=== PATIENT | male | born 1955 | race Caucasian/White ===

== ENCOUNTER 2023-08-04 09:03 | Emergency (ER) | payer OTHER ==
[2023-08-04] MEDS ORDERED: ONDANSETRON 4 MG/2 ML VIAL ONE (09:40)
[2023-08-04] MEDS ORDERED: NA CHLORIDE 0.9% 500 ML ONE (09:41)
[2023-08-04] MEDS ORDERED: PANTOPRAZOLE 40 MG INJ ONE (09:41)
[2023-08-04 09:43] LABS: Absolute Basophils 0.1 K/uL (0-0.5); Absolute Eosinophils 0.1 K/uL (0-0.5); Absolute Lymphocytes (CBC) 3.1 K/uL (0.7-4.9); Absolute Monocytes 0.8 K/uL (0.1-1.3); Absolute Neutrophil 9.2 K/uL (1.8-8.0); Basophils % 0.4 % (0-1.3); Eosinophils % 0.5 % (0-4.4); Hematocrit 22.4 % (39.6-49.0); Hemoglobin 7.7 g/dL (13.6-17.9); Lymphocytes % 23.7 % (15.3-44.8); MCHC 34.1 g/dL (32.0-36.0); MCV 96.7 fL (80-100); MPV 8.4 fL (7.6-11.3); Monocytes % 5.8 % (3.3-12.3); Neutrophils % 69.6 % (41.7-73.7); Nucleated Red Blood Cells % 0.2 % (0-0); Platelets 285 thou/uL (152-406); RBC Red Blood Cell Count 2.32 M/uL (4.33-5.43); Red Cell Distribution Width 13.2 % (12.1-15.2)
--- NOTE | 2023-08-04 09:44 | EDPHYS ---
Physician Documentation [facility] Name: Case Hoyt Age: 67 yrs Sex: Male : 1955 Arrival Date: 08/04/2023 Time: 09:03 Bed 15 Private MD: ED Physician Pro Baez HPI: 08/03 09:31 This 67 yrs old Male presents to ER via EMS with complaints of Bloody Stools. jackie 09:31 The patient presents with abdominal pain in the upper abdomen. Onset: The jackie symptoms/episode began/occurred 2 day(s) ago. The patient presents to the emergency department with rectal bleeding, melena. Onset: The symptoms/episode began/occurred 2 day(s) ago. Abdominal pain: none is appreciated. Modifying factors: The symptoms are alleviated by nothing, the symptoms are aggravated by nothing. The patient presents with feeling faint, lightheadedness. Modifying factors: The symptoms are alleviated by lying down, the symptoms are aggravated by standing up, changing position. 09:34 Associated signs and symptoms: The patient has no apparent associated signs or jackie symptoms. Severity of symptoms: At their worst the symptoms were moderate in the emergency department the symptoms are unchanged. The symptoms do not radiate. Associated signs and symptoms: Pertinent positives: anorexia, blood in stools. Patient's baseline: Neuro: alert and fully oriented. The patient has not experienced similar symptoms in the past. Historical: - Allergies: 09:15 PENICILLINS; aa5 - Home Meds: 09:15 escitalopram oxalate 20 mg oral tablet once [Active]; Plavix 75 mg Oral tablet once aa5 [Active]; atorvastatin 40 mg oral tablet once [Active]; trazodone 100 mg Oral tablet every day at bedtime for insomnia associated with depression [Active]; pantoprazole 40 mg oral tablet, delayed release (enteric coated) once [Active]; losartan 50 mg oral tablet once [Active]; amlodipine 10 mg tablet once [Active]; metformin 500 mg Oral tablet 2 tabs after the evening meal [Active]; - PMHx: 09:15 Diabetes mellitus; Hypertensive disorder; Hypercholesterolemia; aa5 09:18 Insomnia; hard of hearing; aa5 09:15 PAD; aa5 - Immunization history:: Adult Immunizations unknown. - Infectious Disease History:: Denies. - Social history:: Smoking status: Patient reports the use of cigarette tobacco products. - Family history:: not pertinent. ROS: 09:34 Constitutional: Negative for fever, chills, and weight loss, Eyes: Negative for injury, jackie pain, redness, and discharge, ENT: Negative for injury, pain, and discharge, Neck: Negative for injury, pain, and swelling, Cardiovascular: Negative for chest pain, palpitations, and edema, Respiratory: Negative for shortness of breath, cough, wheezing, and pleuritic chest pain, Back: Negative for injury and pain, : Negative for injury, bleeding, discharge, and swelling, MS/Extremity: Negative for injury and deformity, Skin: Negative for injury, rash, and discoloration, Neuro: Negative for headache, weakness, numbness, tingling, and seizure, Psych: Negative for depression, anxiety, suicide ideation, homicidal ideation, and hallucinations, Allergy/Immunology: Negative for hives, rash, and allergies, Endocrine: Negative for neck swelling, polydipsia, polyuria, polyphagia, and marked weight changes, Hematologic/Lymphatic: Negative for swollen nodes, abnormal bleeding, and unusual bruising, 09:34 Abdomen/GI: Positive for black/tarry stool, rectal bleeding, 09:34 Neuro: Positive for dizziness, weakness, Exam: 09:34 Constitutional: This is a well developed, well nourished patient who is awake, alert, jackie and in no acute distress. Head/Face: Normocephalic, atraumatic. Eyes: Pupils equal round and reactive to light, extra-ocular motions intact. Lids and lashes normal. Conjunctiva and sclera are non-icteric and not injected. Cornea within normal limits. Periorbital areas with no swelling, redness, or edema. ENT: Nares patent. No nasal discharge, no septal abnormalities noted. Tympanic membranes are normal and external auditory canals are clear. Oropharynx with no redness, swelling, or masses, exudates, or evidence of obstruction, uvula midline. Mucous membranes moist. Neck: Trachea midline, no thyromegaly or masses palpated, and no cervical lymphadenopathy. Supple, full range of motion without nuchal rigidity, or vertebral point tenderness. No Meningismus. Chest/axilla: Normal chest wall appearance and motion. Nontender with no deformity. No lesions are appreciated. Cardiovascular: Regular rate and rhythm with a normal S1 and S2. No gallops, murmurs, or rubs. Normal PMI, no JVD. No pulse deficits. Respiratory: Lungs have equal breath sounds bilaterally, clear to auscultation and percussion. No rales, rhonchi or wheezes noted. No increased work of breathing, no retractions or nasal flaring. Back: No spinal tenderness. No costovertebral tenderness. Full range of motion. Male : Normal genitalia with no discharge or lesions. MS/ Extremity: Pulses equal, no cyanosis. Neurovascular intact. Full, normal range of motion. Neuro: Awake and alert, GCS 15, oriented to person, place, time, and situation. Cranial nerves II-XII grossly intact. Motor strength 5/5 in all extremities. Sensory grossly intact. Cerebellar exam normal. Normal gait. Psych: Awake, alert, with orientation to person, place and time. Behavior, mood, and affect are within normal limits. 09:34 Abdomen/GI: Inspection: abdomen appears normal, Bowel sounds: normal, Palpation: abdomen is soft and non-tender, Rectal exam: Prostate: normal, rectal tone normal, Stool: black, hemorrhoid(s), are not appreciated, swelling, is not appreciated, tenderness, is not appreciated, Liver: no appreciated palpable abnormalities, Hernia: not appreciated, 10:05 ECG was reviewed by the Attending Physician. jackie Vital Signs: 09:10 BP 123 / 68; Pulse 105; Resp 18 S; Temp 98.9(O); Pulse Ox 99% on R/A; aa5 09:55 BP 120 / 65; Pulse 82; Resp 18 S; Pulse Ox 100% on R/A; aa5 11:50 BP 137 / 64; Pulse 83; Resp 16 S; Temp 97.8(TE); Pulse Ox 100% on R/A; aa5 12:10 BP 115 / 62; Pulse 78; Resp 16 S; Temp 97.5(TE); Pulse Ox 100% on R/A; aa5 12:25 BP 121 / 63; Pulse 83; Resp 16 S; Temp 97.7(TE); Pulse Ox 100% on R/A; aa5 MDM: 09:14 Patient medically screened. jackie 09:39 Differential diagnosis: cardiac arrhythmia, generalized weakness, GI bleed, jackie hypovolemia, idiopathic dizziness, near-syncope. Differential diagnosis: diverticulitis, hemorrhagic shock, bowel obstruction, diverticulitis, gastritis, gastroesophageal reflux disease, GI Bleed, non-specific abd pain, pancreatitis, Peptic Ulcer Disease, urinary tract infection. Data reviewed: vital signs, nurses notes, EMS record, lab test result(s), EKG, radiologic studies, plain films. Consideration of Admission/Observation Escalation of care including admission/observation considered. I considered the following discharge prescriptions or medication management in the emergency department Medications were administered in the Emergency Department. See MAR. Independent interpretation of the following test(s) in the Emergency Department EKG: See my EKG interpretation above. Test considered but Not performed: CT: NO CT ABD PEL. Historians other than the Patient: EMS: EMS WELL INFORMED. Care significantly affected by the following chronic conditions: Diabetes, Hypertension. Counseling: I had a detailed discussion with the patient and/or guardian regarding the historical points, exam findings, and any diagnostic results supporting the discharge/admit diagnosis, lab results, radiology results, the need to transfer to another facility, for higher level of care, [facility] does not immediately have the required specialist. 08/03 09:23 Order name: Basic Metabolic Panel; Complete Time: 10:19 jackie 08/03 09:23 Order name: CBC with Diff; Complete Time: 10:19 [facility] 08/03 09:23 Order name: LFT's; Complete Time: 10:19 jackie 08/03 09:23 Order name: Magnesium; Complete Time: 10:19 jackie 08/03 09:23 Order name: NT PRO-BNP; Complete Time: 10:19 [facility] 08/03 09:23 Order name: PT-INR; Complete Time: 10:19 jackie 08/03 09:23 Order name: Troponin HS; Complete Time: 10:19 [facility] 08/03 09:23 Order name: Lipase; Complete Time: 10:19 [facility] 08/03 09:23 Order name: Type And Screen [facility] 08/03 09:29 Order name: Bb Add On bd 08/03 10:18 Order name: Packed RBC Leukored EDIA 08/03 11:20 Order name: ABO/RH no charge EDMS 08/03 09:23 Order name: XRAY Chest (1 view) [facility] 08/03 10:57 Order name: CT Abd/Pelvis - Without Contrast 08/03 09:23 Order name: Cardiac monitoring; Complete Time: 09:38 08/03 09:23 Order name: EKG - Nurse/Tech; Complete Time: 10:04 08/03 09:23 Order name: IV Saline Lock; Complete Time: :38 08/03 09:23 Order name: Labs collected and sent; Complete Time: 09:38 08/03 09:23 Order name: O2 Per Protocol; Complete Time: 09:39 08/03 09:23 Order name: O2 Sat Monitoring; Complete Time: 09:39 08/03 09:23 Order name: IV Saline Lock - Large Bore; Complete Time: 09:28 [facility] 08/03 10:19 Order name: Transfuse; Complete Time: 12:09 [facility] 08/03 10:44 Order name: Labs - recollect needed: collect abo/rh no charge; Complete Time: 10:48 bd EC:05 Rate is 90 beats/min. Rhythm is regular. QRS [place] is Normal. CT interval is normal. QRS jackie interval is normal. QT interval is prolonged at 481 msec. No Q waves. T waves are Normal. No ST changes noted. Clinical impression: NSR w/ Non-specific ST/T Changes and No evidence of ischemia. Interpreted by me. Reviewed by me. Administered Medications: :30 Drug: NS 0.9% IV 500 ml IV at bolus once Route: IV; Rate: bolus; Site: right aa antecubital; 10:21 Follow up: IV Status: Completed infusion; IV Intake: 500ml [facility] :30 Drug: NS 0.9% IV 1000 ml IV at 125 ml/hr continuous Route: IV; Rate: 125 ml/hr; Site: aa right antecubital; 12:28 Follow up: IV Status: Infusion continued upon transfer :30 Drug: Pantoprazole IVP 80 mg IVP once Route: IVP; Site: right antecubital; aa5 09:40 Follow up: Response: No adverse reaction 5 :30 Drug: Ondansetron IVP 4 mg IVP once; over 2 minutes Route: IVP; Site: right antecubital;5 09:40 Follow up: Response: No adverse reaction [facility] 10:21 Drug: Pantoprazole IV 8 mg/hr IV at 25 ml/hr continuous; (Standard dilution is 80 mg in aa5 250 mL NS) Route: IV; Rate: 25 ml/hr; Site: right antecubital; 12:28 Follow up: IV Status: Infusion continued upon transfer aa5 11:14 Drug: Magnesium Sulfate IVPB 1 grams IVPB once over 1 hrs Route: IVPB; Infused Over: 1 aa5 hrs; Site: right hand; 12:14 Follow up: IV Status: Completed infusion aa5 Disposition Summary: 08/04/23 09:43 Transfer Ordered Notes: Transfer Location: [facility] Reason: Higher level of care jackie Condition: Fair jackie Problem: new jackie Symptoms: have improved jackie Accepting Physician: TO [facility](08/04/23 13:00) as6 Diagnosis - GI Bleed/ Gastrointestinal hemorrhage, unspecified - UPPER jackie - Weakness jackie - Syncope Near jackie - Non ST elevation [place] jackie Forms: - Medication Reconciliation Form jackie - SBAR form jackie Signatures: Dispatcher [employer] EDMS Joanie Rolon Corey, MD MD cha Calderon, Audri RN RN aa5 Thanh Cueva RN RN as6 Corrections: (The following items were deleted from the chart) 10:20 09:43 TO [facility] 10:23 09:15 Allergies: No Known Allergies; aa5 aa5 10:32 10:20 PACKED RBC LEUKORED+BB.LAB.BRZ ordered. EDMS EDMS 10:32 10:22 ABO/RH typing ordered. EDMS EDMS 10:32 10:22 Antibody Screen ordered. EDMS EDMS 13:00 10:[address] [facility] as6
--- NOTE | 2023-08-04 09:44 | ER ---
Nurse's Notes [facility] Name: Case Hoyt Age: 67 yrs Sex: Male : 1955 Arrival Date: 08/04/2023 Time: 09:03 Bed 15 Private MD: Diagnosis: GI Bleed/ Gastrointestinal hemorrhage, unspecified-UPPER ;Weakness;Syncope Near;Non ST elevation OR Presentation: 08/03 09:10 Chief complaint: EMS states: black stools x 2 days ago, lower abd pain, and dizzy today.aa5 09:10 Coronavirus screen: cough unrelated to allergies. Ebola Screen: Patient denies travel aa5 to an Ebola-affected area in the 21 days before illness onset. Initial Sepsis Screen: Does the patient meet any 2 criteria? HR > 90 bpm. Does the patient have a suspected source of infection? No. Patient's initial sepsis screen is negative. Risk Assessment: Do you want to hurt yourself or someone else? Patient reports no desire to harm self or others. Onset of symptoms was July 2023. 09:10 Method Of Arrival: EMS: [facility] aa5 09:10 Acuity: PAOLA 2 aa5 Historical: - Allergies: 09:15 PENICILLINS; aa5 - Home Meds: 09:15 escitalopram oxalate 20 mg oral tablet once [Active]; Plavix 75 mg Oral tablet once aa5 [Active]; atorvastatin 40 mg oral tablet once [Active]; trazodone 100 mg Oral tablet every day at bedtime for insomnia associated with depression [Active]; pantoprazole 40 mg oral tablet, delayed release (enteric coated) once [Active]; losartan 50 mg oral tablet once [Active]; amlodipine 10 mg tablet once [Active]; metformin 500 mg Oral tablet 2 tabs after the evening meal [Active]; - PMHx: 09:15 Diabetes mellitus; Hypertensive disorder; Hypercholesterolemia; aa5 09:18 Insomnia; hard of hearing; aa5 09:15 PAD; aa5 - Immunization history:: Adult Immunizations unknown. - Infectious Disease History:: Denies. - Social history:: Smoking status: Patient reports the use of cigarette tobacco products. - Family history:: not pertinent. Screenin:10 [facility] ED Fall Risk Assessment (Adult) History of falling in the last 3 months, aa5 including since admission No falls in past 3 months (0 pts) Confusion or Disorientation No (0 pts) Intoxicated or Sedated No (0 pts) Impaired Gait Yes (1 pt) Mobility Assist Device Used No (0 pt) Altered Elimination No (0 pt) Score/Fall Risk Level 0 - 2 = Low Risk Oriented to surroundings, Maintained a safe environment, Educated pt \T\ family on fall prevention, incl call for assistance when getting out of bed. Abuse screen: Denies threats or abuse. Nutritional screening: No deficits noted. Tuberculosis screening: No symptoms or risk factors identified. Assessment: 09:10 General: Appears uncomfortable, Behavior is calm, cooperative. Pain: Complains of pain aa5 in right lower quadrant and left lower quadrant Pain does not radiate. Pain currently is 5 out of 10 on a pain scale. Quality of pain is described as sharp, Pain began 2-3 days ago. Is intermittent. Neuro: Level of Consciousness is awake, alert, obeys commands, Oriented to person, place, time, situation, Reports dizziness, with movement and standing, currently denies feeling dizzy. Cardiovascular: Heart tones S1 S2 present Rhythm is regular. Respiratory: Airway is patent Respiratory effort is even, unlabored, Respiratory pattern is regular, symmetrical. GI: Abdomen is round non-distended, Bowel sounds present X 4 quads. Abd is soft and non tender X 4 quads. Reports black stools Patient currently denies nausea, vomiting. : No signs and/or symptoms were reported regarding the genitourinary system. EENT: No signs and/or symptoms were reported regarding the EENT system. Derm: Skin is dry, Skin is pale, Skin temperature is warm. Musculoskeletal: pt has generalized weakness. 09:55 Reassessment: Pt sitting up in bed attempting to complete registration paperwork, pt aa5 appears uncomfortable, pale, pt c/o dizziness. Pt was instructed to lie down and HOB currently at 30 degrees, pt states feeling better now. . 10:20 Reassessment: Received pantoprazole drip from pharmacy will administer now. . aa5 11:00 Neuro: Level of Consciousness is awake, alert, obeys commands, Oriented to person, aa5 place, time, situation. Respiratory: Airway is patent Respiratory effort is even, unlabored, Respiratory pattern is regular, symmetrical. Derm: Skin is dry, Skin is pale, Skin temperature is warm. 11:50 Neuro: Level of Consciousness is awake, alert, obeys commands, Oriented to person, aa5 place, time, situation. Respiratory: Airway is patent Respiratory effort is even, unlabored, Respiratory pattern is regular, symmetrical. Derm: Skin is dry, Skin is pale, Skin temperature is warm. 12:10 Reassessment: RBC unit #1 started at 1155, started at 50cc/hr, currently infusing at aa5 200cc/hr, pt tolerating well, no adverse reaction noted or reported. See transfusion record for complete chart and VS.. 12:12 Reassessment: Report given to nurse Santiago at [facility], RM [id number]. . aa5 12:25 Reassessment:. Reassessment: Patient states feeling better. Awaiting EMS for transfer aa5 to [facility]. . Neuro: Level of Consciousness is awake, alert, obeys commands, Oriented to person, place, time, situation. Respiratory: Airway is patent Respiratory effort is even, unlabored, Respiratory pattern is regular, symmetrical. Derm: Skin is dry, Skin is pale, Skin temperature is warm. 12:53 Reassessment: RBC unit transfer of care, Jayne with [facility]. aa5 Vital Signs: 09:10 BP 123 / 68; Pulse 105; Resp 18 S; Temp 98.9(O); Pulse Ox 99% on R/A; aa5 09:55 BP 120 / 65; Pulse 82; Resp 18 S; Pulse Ox 100% on R/A; aa5 11:50 BP 137 / 64; Pulse 83; Resp 16 S; Temp 97.8(TE); Pulse Ox 100% on R/A; aa5 12:10 BP 115 / 62; Pulse 78; Resp 16 S; Temp 97.5(TE); Pulse Ox 100% on R/A; aa5 12:25 BP 121 / 63; Pulse 83; Resp 16 S; Temp 97.7(TE); Pulse Ox 100% on R/A; aa5 ED Course: 09:10 Patient arrived in ED. aa5 09:10 Arm band placed on Patient placed in an exam room, on a stretcher. aa5 09:10 Patient has correct armband on for positive identification. Placed in gown. Bed in low aa5 position. Call light in reach. Side rails up X2. Client placed on continuous cardiac and pulse oximetry monitoring. NIBP monitoring applied. inside outside sales representative on. Pulse ox on. NIBP on. 09:10 Maintain EMS IV. Dressing intact. Good blood return noted. Site clean \T\ dry. Gauge \T\ aa 5 site: 18G to R AC . 09:13 Larisa Storey, RN is Primary Nurse. aa5 09:14 Pro Baez MD is Attending Physician. [facility] 09:14 Triage completed. aa5 09:32 Initial lab(s) drawn, by [place], sent to lab. T\T\S collected, blood band applied to patient. aa5 09:36 XRAY Chest (1 view) In Process Unspecified. EDMS 10:00 EKG done, by ED staff, reviewed by Pro Baez MD. aa5 10:13 pts called left her number [phone]. bd 10:26 initiated transfer to [facility]. bd 10:50 Inserted saline lock: 20 gauge in right hand, using aseptic technique. aa5 11:00 Consent for blood and/or blood product transfusion explained by staff, signed by aa5 patient. 11:18 CT Abd/Pelvis - Without Contrast In Process Unspecified. EDMS 12:09 pt accepted in transfer to [facility] by Dr Vallecillo to rm [id number], admin approval bd given by MARILYN Willoughby. 12:55 No provider procedures requiring assistance completed. Patient transferred, IV remains aa5 in place. Administered Medications: 09:30 Drug: NS 0.9% IV 500 ml IV at bolus once Route: IV; Rate: bolus; Site: right aa5 antecubital; 10:21 Follow up: IV Status: Completed infusion; IV Intake: 500ml aa5 09:30 Drug: NS 0.9% IV 1000 ml IV at 125 ml/hr continuous Route: IV; Rate: 125 ml/hr; Site: aa5 right antecubital; 12:28 Follow up: IV Status: Infusion continued upon transfer aa5 09:30 Drug: Pantoprazole IVP 80 mg IVP once Route: IVP; Site: right antecubital; aa5 09:40 Follow up: Response: No adverse reaction aa5 09:30 Drug: Ondansetron IVP 4 mg IVP once; over 2 minutes Route: IVP; Site: right antecubital;aa5 09:40 Follow up: Response: No adverse reaction aa5 10:21 Drug: Pantoprazole IV 8 mg/hr IV at 25 ml/hr continuous; (Standard dilution is 80 mg in aa5 250 mL NS) Route: IV; Rate: 25 ml/hr; Site: right antecubital; 12:28 Follow up: IV Status: Infusion continued upon transfer aa5 11:14 Drug: Magnesium Sulfate IVPB 1 grams IVPB once over 1 hrs Route: IVPB; Infused Over: 1 aa5 hrs; Site: right hand; 12:14 Follow up: IV Status: Completed infusion aa5 Medication: 10:52 VIS not applicable for this client. aa5 Intake: 10:21 IV: 500ml; Total: 500ml. aa5 Outcome: 09:43 ER care complete, transfer ordered by . jackie 12:53 Condition: stable aa5 12:53 Instructed on the need for transfer, 12:53 Transferred by ground EMS Transfer form completed. X-rays sent w/ patient. Note: To [address] [place] [address], report given to [facility]. 12:55 Patient left the ED. aa5 Signatures: Dispatcher [employer] EDMS Joanie Rolon Corey, MD MD cha Calderon, Audri, RN RN aa5 Thanh Cueva RN RN as6 Corrections: (The following items were deleted from the chart) 10:23 09:15 Allergies: No Known Allergies; aa5 aa5 10:28 09:10 Acuity: PAOLA 3 aa5 aa5 12:26 12:10 Reassessment: RBC unit #1 started at 1155, started at 50cc/hr, currently infusing aa5 at 200cc/hr, pt tolerating well, no adverse reaction noted or reported. . aa5 13:34 13:00 Patient left the ED. as6 aa5 17:32 13:35 Transferred by ground EMS Transfer form completed. X-rays sent w/ patient. Note: aa5 To [place] [id number] 17:32 13:35 Condition: stable aa aa5 17:32 13:35 Instructed on the need for transfer, aa5 aa5
[2023-08-04 09:47] LABS: PT Prothrombin Time 12.9 SECONDS (9.5-12.5); Protime INR 1.18
[2023-08-04] MEDS ORDERED: PANTOPRAZOLE INJ 80 MG in NA CHLORIDE 0.9% 250 ML IV SCH (10:00)
[2023-08-04 10:10] LABS: ALT/SGPT 12 U/L (16-61); AST/SGOT 9 U/L (15-37); Albumin 3.3 g/dL (3.4-5.0); Albumin/Globulin Ratio 1.3 (1.1-1.8); Alkaline Phosphatase 43 U/L (45-117); Anion Gap 11.5 mEq/L (5.0-15.0); BUN Blood Urea Nitrogen 50 mg/dL (7-18); Bicarbonate 18 mEq/L (21-32); Bilirubin Total 0.2 mg/dL (0.2-1.0); Globulin 2.5 g/dL (2.3-3.5); Glomerular Filtration Rate 55 ml/min (=/>90); Glucose Level 184 mg/dL (74-106); Lipase 19 U/L (13-75); Magnesium 1.6 mg/dL (1.6-2.4); NT PRO-BNP 69 pg/mL (<125); Potassium 3.5 mEq/L (3.5-5.1); Protein, Total 5.8 g/dL (6.4-8.2); Sodium Level 138 mEq/L (136-145)
[2023-08-04 10:15] LABS: Bilirubin Direct < 0.1 mg/dL (0-0.2); Bilirubin Indirect, Calculated ND mg/dL (0.2-0.8)
--- NOTE | 2023-08-04 10:36 | RAD REPORT ---
EXAM DESCRIPTION: Cecilia Single View08/04/2023 9:34 am CLINICAL HISTORY: Shortness breath COMPARISON: none FINDINGS: Small calcific density left humerus probably either an enchondroma or infarct. The lungs appear clear of acute infiltrate. The heart is normal size
[2023-08-04] MEDS ORDERED: MAGNESIUM SULFATE 1 gm IVPB 1 GM/100 ML BAG IV ONE (11:12)
[2023-08-04] MEDS ORDERED: NA CHLORIDE 0.9% 250 ML ONE (11:33)
--- NOTE | 2023-08-04 12:06 | RAD REPORT ---
EXAM DESCRIPTION: CT - Abdomen Pelvis Wo Contrast - 08/04/2023 11:18 am CLINICAL HISTORY: Abdominal pain COMPARISON: None TECHNIQUE: Computed axial tomography of the abdomen and pelvis was obtained. IV and oral contrast we re not requested. All CT scans are performed using dose optimization technique as appropriate and may include automated exposure control or mA/KV adjustment according to patient size. FINDINGS: The evaluation of solid organs, vessels and bowel is limited secondary to the lack of con trast administration. The liver, spleen, pancreas, right adrenal gland and right kidney grossly normal. Mild fullness left adrenal gland likely not significant 1.3 centimeter possible mass posterior mid pole right kidney The appendix is normal. There is no evidence of diverticulitis. Atherosclerosis IMPRESSION: 1.3 centimeter possible right renal mass. Further evaluation with ultrasound recommended
[2023-08-04 18:14] VITALS: O2SAT 100
[2023-08-04 18:38] VITALS: BP 121/63; TEMP 97.7
== END 2023-08-04 13:00 | disposition short-term general hospital (02) ==
LOC: ER 09:03
PROC: 30233N1 Transfusion of Nonautologous Red Blood Cells into Peripheral Vein, Percutaneous Approach (ICD-10-PCS; principal; 2023-08-04)
DX: R53.1 Weakness (principal); I21.4 Non-ST elevation (NSTEMI) myocardial infarction; R55 Syncope and collapse; E11.9 Type 2 diabetes mellitus without complications; I10 Essential (primary) hypertension; Z79.01 Long term (current) use of anticoagulants; Z88.0 Allergy status to penicillin
CPT/HCPCS: 93005; 85025; 80048; 36415; 86900; 83735; 86850; 85610; 86901; 80076; 86920 ×2; 84484; 83690; 83880; 74176; 71045; 99285; 36430; J3475; C9113; J2405; P9016; J7050; J7040